=== PATIENT | female | born 1950 | race Caucasian/White ===

== ENCOUNTER 2021-01-17 06:19 | Day surgery (SDC) | payer MEDICARE ==
[~2021-01-17] VITALS: Ht 160 cm; Wt 52.3 kg
[2021-01-17] MEDS ORDERED: ALBUTEROL SULFATE 2.5 MG/0.5 ML NEB SOLUTION NEB ONE (06:20)
[2021-01-17] MEDS ORDERED: LIDOCAINE 2% 30 ML JELLY TP ONE (06:20)
[2021-01-17] MEDS ORDERED: LIDOCAINE 4% 50 ML SOLUTION TP ONE (06:20)
[2021-01-17] MEDS ORDERED: BENZOCAINE 20% 50 MCG/SPRAY 57 GM TP ONE (06:20)
[2021-01-17] MEDS ORDERED: SODIUM CHLORIDE 0.9% 1,000 ML IV ONE (06:30)
[2021-01-17] MEDS ORDERED: SODIUM CHLORIDE 0.9% 1,000 ML ONE (07:11)
[2021-01-17] MEDS ORDERED: FAMO20 PO (07:23)
[2021-01-17] MEDS ORDERED: MONT10TA32 PO (07:23)
[2021-01-17] MEDS ORDERED: FLUT220HFA IH (07:23)
[2021-01-17] MEDS ORDERED: DOXY100C5 PO (07:23)
[2021-01-17] MEDS ORDERED: GABA-529 PO (07:23)
[2021-01-17] MEDS ORDERED: DULO30CA89 PO (07:23)
[2021-01-17] MEDS ORDERED: AMLO10TA55 PO (07:23)
[2021-01-17 07:35] LABS: COVID AG,FIA SOURCE NASOPHARYNGEAL
[2021-01-17] MEDS ORDERED: FentaNYL CITRATE PF 100 MCG/2 ML VIAL ONE (07:41)
[2021-01-17] MEDS ORDERED: MIDAZOLAM HCL 5 MG/ML VIAL ONE (07:41)
[2021-01-17] MEDS ORDERED: MethylPREDNISolone SOD SUCC 125 MG/2 ML VIAL IVP ONE (09:15)
[2021-01-17] MEDS ORDERED: MethylPREDNISolone SOD SUCC 125 MG/2 ML VIAL ONE (09:28)
[2021-01-17] MEDS ORDERED: OXYGEN THERAPY IH SCH (20:00)
== END 2021-01-17 10:30 | disposition home or self-care (01) ==
LOC: SURGERY 06:19
PROVIDERS: ATTEND Internal Medicine Critical Care Medicine
DX: R05 Cough (principal); R04.2 Hemoptysis; R91.1 Solitary pulmonary nodule; J34.89 Other specified disorders of nose and nasal sinuses; J98.8 Other specified respiratory disorders; J38.4 Edema of larynx; B37.0 Candidal stomatitis; I10 Essential (primary) hypertension; Z20.822 Contact with and (suspected) exposure to COVID-19; Z79.899 Other long term (current) drug therapy
CPT/HCPCS: 31623; 31624; 71045; 87015; 87070; 87077; 87101; 87186; 87206; 87220; 87426; 88108; 88184; 88185; 88312; C9803; J2250; J2930; J3010; J7030; J7613; Z7610

== ENCOUNTER 2024-03-08 06:47 | Day surgery (SDC) | payer OTHER ==
[~2024-03-08] VITALS: Ht 91.4 cm; Wt 50.5 kg
[~2024-03-08 06:47] MED LIST: AMLO10TA55 PO; DENO60DI SQ; ESCI-8 PO; FAMO20TA8 PO; GABA-1181 PO; MONT-40 PO; PRAV20TA4 PO; SODIUM CHLORIDE 0.9% 1,000 ML ONE; SUCR1TAB2 PO; TRAZ-252 PO
[2024-03-08] MEDS ORDERED: MIDAZOLAM HCL 2 MG/2 ML VIAL ONE (08:04)
[2024-03-08] MEDS ORDERED: FentaNYL CITRATE PF 100 MCG/2 ML VIAL ONE (08:04)
[2024-03-08] MEDS: SODIUM CHLORIDE 0.9% 1,000 ML IV ONE (08:28)
[2024-03-08 09:26] VITALS: PULSE 88; RESP 21; O2SAT 94
[2024-03-08] MEDS ORDERED: MethylPREDNISolone SOD SUCC 125 MG/2 ML VIAL ONE (10:23)
[2024-03-08] MEDS: MethylPREDNISolone SOD SUCC 125 MG/2 ML VIAL IVP ONE (10:24)
[2024-03-08] MEDS ORDERED: LIDOCAINE 4% 50 ML SOLUTION TP ONE (12:00)
[2024-03-08] MEDS ORDERED: BENZOCAINE 20% 50 MCG/SPRAY 57 GM TP ONE (12:00)
[2024-03-08] MEDS ORDERED: LIDOCAINE 2% 11 ML JELLY TP ONE (12:00)
== END 2024-03-08 12:00 | disposition home or self-care (01) ==
LOC: SURGERY 06:47
PROVIDERS: ATTEND Internal Medicine Critical Care Medicine
DX: R05.3 Chronic cough (principal); R06.2 Wheezing; R49.0 Dysphonia; R04.2 Hemoptysis; R91.8 Other nonspecific abnormal finding of lung field; J38.4 Edema of larynx; B37.0 Candidal stomatitis; E78.00 Pure hypercholesterolemia, unspecified
CPT/HCPCS: 31623; 87206; 87101; 87220; 87070; 88108; 87186; 31624; 71045; 87015; J3010; J2250; J2919; J7030; Z7610

== ENCOUNTER → 2025-05-18 | Day surgery (SDC) | payer OTHER ==
[~2025-05-18] VITALS: Ht 162.6 cm; Wt 53.6 kg
[~2025-05-18] MED LIST changes: +ALBUTEROL SULFATE 2.5 MG/0.5 ML NEB SOLUTION NEB ONE; +BENZOCAINE 20% 50 MCG/SPRAY 57 GM ONE; +FentaNYL CITRATE PF 100 MCG/2 ML VIAL ONE; +LIDOCAINE 2% 11 ML JELLY ONE; +LIDOCAINE 4% 50 ML SOLUTION ONE; +MIDAZOLAM HCL 2 MG/2 ML VIAL ONE; -PRAV20TA4 PO; +PRAV20TA59 PO
[2025-05-18] MEDS: SODIUM CHLORIDE 0.9% 1,000 ML IV ONE (07:52)
[2025-05-18 10:10] VITALS: PULSE 71; RESP 18; O2SAT 100
== END | disposition home or self-care (01) ==
LOC: SURGERY 06:25
PROVIDERS: ATTEND Internal Medicine Critical Care Medicine
DX: J38.4 Edema of larynx (principal); B37.0 Candidal stomatitis; R05.3 Chronic cough; R06.2 Wheezing; R04.2 Hemoptysis; I10 Essential (primary) hypertension; I70.0 Atherosclerosis of aorta
CPT/HCPCS: 31623; 87206; 87101; 87220; 87070; 31624; 71045; 87015; J3010; J2250; J2919; J7030; 88108; J7613; Z7610